=== PATIENT | female | born 1945 | race Caucasian/White ===

== ENCOUNTER 2020-10-29 01:31 | Inpatient (IN) | payer MEDICARE, BC ==
[~2020-10-29] VITALS: Ht 165.1 cm; Wt 73.0 kg
[2020-10-29] MEDS ORDERED: OLME20TA13 PO (01:50)
[2020-10-29] MEDS ORDERED: ASPI81TA31 PO (01:50)
[2020-10-29] MEDS ORDERED: CARV6.252 PO (01:50)
[2020-10-29] MEDS ORDERED: SPIR25TA6 PO (01:50)
[2020-10-29] MEDS ORDERED: vitamin d3 PO (01:50)
[2020-10-29] MEDS ORDERED: PANT40TA49 PO (01:50)
[2020-10-29] MEDS ORDERED: CYAN100T44 PO (01:50)
[2020-10-29] MEDS ORDERED: IV NS 1000 ML 1,000 ML IV ONE ×2 (02:30→03:30)
[2020-10-29 02:33] LABS: CARBON DIOXIDE 26 mmol/L (21-32); CHLORIDE 109 mmol/L (98-107); CREATININE 1.5 mg/dL (0.6-1.3); GLUCOSE 101 mg/dL (74-106); POTASSIUM 4.1 mmol/L (3.5-5.1); UREA NITROGEN, BLOOD 40 mg/dL (7-18)
--- NOTE | 2020-10-29 04:13 | NUR ---
After 2 liters of NS, patient will be medically cleared to be admitted to MHU.
--- NOTE | 2020-10-29 05:13 | NUR ---
IV removed. Catheter intact and site benign. Pressure and 4x4 gauze applied to site. No bleeding noted.
--- NOTE | 2020-10-29 05:26 | NUR ---
Transfered to MHU via wheelchair with no distress noted.
[2020-10-29] MEDS ORDERED: MAG HYDROX/AL HYDROX/SIMETH 30 ML LIQUID UDC PO PRN (05:30)
[2020-10-29] MEDS ORDERED: ZOLPIDEM 5 MG TABLET PO PRN (05:30)
[2020-10-29] MEDS ORDERED: BLOOD SUGAR DIAGNOSTIC 1 EACH STRIP VI ONE (05:30)
[2020-10-29] MEDS ORDERED: MAGNESIUM HYDROXIDE 30 ML LIQUID UDC PO PRN (05:30)
[2020-10-29] MEDS ORDERED: ACETAMINOPHEN 325 MG TABLET PO PRN (05:30)
[2020-10-29 06:25] VITALS: BP 138/74
--- NOTE | 2020-10-29 06:27 | NUR ---
GPS: Admitted to unit earlier a 75 yr.old female under the care of /YRIS Allen. Pt.is on a 72 hour hold for GD. Pt.has been refusing her meds,reportedly decreasing her functioning,becoming agitated and increasingly unable to care for herself,per hold. Pt.is alert to self. Confused and slightly anxious at this time but cooperative. Pt's advisement/pt's rights booklet given. Unit rules explained. Personal belongings list/skin assessment completed. Safety emphasized. YRIS Allen notified to reconcile meds. Safety checks Q15 minutes initiated for safety. Will continue to monitor.
--- NOTE | 2020-10-29 06:58 | NUR ---
Daughter Sabina Hu made aware of admission to MHU, expressed acknowledgement of information.
--- NOTE | 2020-10-29 08:17 | NUR ---
FIREARMS REPORT: Loading [employer] Hand completed and submitted a [employer] firearms report for 5150 grave disability certification. A copy of report has been placed in patient chart.
--- NOTE | 2020-10-29 09:39 | NUR ---
SW Family Contact: This SW contacted patient's daughter Rufina ([phone]) to discuss treatment and discharge plan and was unavailable. This SW left a detailed voicemail.
--- NOTE | 2020-10-29 09:39 | NUR ---
SW Initial Discharge Plan: Patient resides at a Memory Care Unit located at [address] [place] [address]. Phone number for the Memory Unit is not unavailable. This SW checked pt's chart and was not listed. This SW contacted patient's daughter Rufina ([phone]) to discuss treatment and discharge plan and was unavailable. This SW left a detailed voicemail. SW will work with the family and MD to coordinate proper discharge.
--- NOTE | 2020-10-29 09:43 | NUR ---
Treatment Plan: Pt unable to sign treatment plan due to confusion.
--- NOTE | 2020-10-29 10:14 | NUR ---
SW Family Contact: This SW spoke with patient's daughter Rufina ([phone]) who stated that she is the DPOA and will send this SW the document. She stated that patient resides at a Memory Care Unit called [facility] located at [address] [place] [address]. Daughter provided this SW directors number Roma ([phone]). Daughter stated she would want pt back to the memory care unit. She stated she is unsure if they will take pt back and pt has been at the memory care unit for only a week. This SW offered her nursing facility option and daughter appeared to be confused in terms of where she would want pt to go. Daughter expressed she needs time and has her own resources. This SW educated her on pt's status and 5150/5250. Daughter would want SW to contact memory care unit and see if they will take pt back. Daughter appears to be anxious in terms of pt being in a psychiatric unit and is in denial that pt's mental status is declining.
--- NOTE | 2020-10-29 10:19 | NUR ---
Memory Care Unit Contact: Memory Care Unit called [facility] located at [address] [place] [address]. Daughter provided this SW directors number Roma ([phone]). This SW contacted Roma and she was unavailable at this time. This SW left a detailed voicemail.
[2020-10-29] MEDS ORDERED: OLANZAPINE 10 MG VIAL IM ONE (11:15)
--- NOTE | 2020-10-29 11:19 | NUR ---
GPS: Nursing Notes: Striking Out without Provocation: Patient is awake responding to her name, responding to internal stimuli, by talking to unseen others, got out of bed, unsteady gait, when staff started to assist her when she was loosing her balance, patient became paranoid, violent outburst without provocation, striking out and kicking staff without any regard for safety, or others, confused, shouting for her mother, unable to be redirected, Dr. Rubio was paged, continue to monitor for safety, continue with treatment plan.
--- NOTE | 2020-10-29 11:24 | NUR ---
GPS: Nursing Notes: Chemical Restraint: Patient continue to strike out to staff, kicking staff, overly disruptive by shouting, paranoid behavior, episodes of threatening staff, confused, disoriented, setting limits, but unable to redirected, "YOU ARE GOING TO GET IT..", shouting incoherently, responding to internal stimuli by talking unseen others, restless behavior, R=18, Dr. Rubio called and ordered: Zyprexa 10mg IM STAT X1 for severe agitation, continue to monitor for safety, continue with treatment plan.
--- NOTE | 2020-10-29 11:54 | NUR ---
GPS: Nursing Notes: Reassessment of Chemical Restraint: Patient is awake and responding to her name, confused, disoriented, impaired judgment, poor insight, episodes of talking incoherently, medication IM as effective, patient became calm, stopped hitting staff when assisting her, R=18, continue to monitor for safety, continue with treatment plan.
--- NOTE | 2020-10-29 13:22 | NUR ---
Memory Care Unit Contact: [facility] [place] [facility] [place] located at [address] [place] [address]. Daughter provided this directors number Roma ([phone]). Roma stated as long as pt is medication compliant they will take pt back.
[2020-10-29] MEDS: LORAZEPAM 0.5 MG TABLET PO PRN (14:06)
[2020-10-29 15:29] VITALS: BP 143/82
[2020-10-29 18:20] LABS: *BILIRUBIN,URIN NEGATIVE (NEGATIVE); *BLOOD, URINE NEGATIVE (NEGATIVE); *CLARITY,URINE CLEAR (CLEAR); *COLOR,URINE YELLOW (YELLOW); *KETONES,URINE NEGATIVE (NEGATIVE); *UROBILINOGEN,URINE 0.2 E.U./dl (NORMAL); LEUKOCYTE ESTERASE ,URINE NEGATIVE (NEGATIVE); NITRITE, URINE NEGATIVE (NEGATIVE); UGLUCOSE NEGATIVE (NEGATIVE)
[2020-10-29 18:27] LABS: *CREATININE,URINE 49.9 mg/dL (30-125); *URINE TOTAL PROTEIN RANDOM 7.3 mg/dL (<150/24HR)
--- NOTE | 2020-10-29 20:00 | NUR ---
RECEIVED PATIENT IN THE HALLWAY SITTING IN A MIREYA CHAIR. SHE IS NOTED A/O X 1 NOTED CONFUSED HYPERVERBAL WITH DISORGANIZED SPEECH, LABILE AND EASILY IRRITABLE. SHE IS ALSO NOTED HAVING VH/AH SHE IS NOTED TALKING TO HERSELF AND REACHING FOR THINGS THAT ARE NOT THERE. PATIENT IS POOR HISTORIAN. SHE IS HARD TO REDIRECT AND SHE REQUIRES MULTIPLE REDIRECTION AND REASSURANCE. PATIENT WAS OFFERED PO FLUIDS AND SNACKS. V/S STABLE. SAFETY AND FALL PRECAUTION IN PLACE. WILL CONTINUE TO MONITOR.
[2020-10-29 20:05] VITALS: BP 139/87
[2020-10-29] MEDS: risperiDONE 0.25 MG TABLET PO SCH (21:08)
--- NOTE | 2020-10-29 22:30 | NUR ---
PATIENT WAS ABLE TO COMPLY WITH HER MEDICATION REGIMENT; HOWEVER, SHE REQUIRES MULTIPLE REDIRECTION AND REASSURANCE. SHE IS NOTED EASILY IRRITABLE. AMBIEN 5MG WAS GIVEN TO HELP HER SLEEP.
[2020-10-30] MEDS: PANTOPRAZOLE SODIUM 40 MG TABLET.DR PO SCH (07:00)
[2020-10-30] MEDS: LORAZEPAM 0.5 MG TABLET PO PRN (07:24)
[2020-10-30 07:30] VITALS: BP 142/111
[2020-10-30] MEDS: ASPIRIN 81 MG TAB.CHEW PO SCH ×3 (09:00→12:54)
[2020-10-30] MEDS: CYANOCOBALAMIN 100 MCG TABLET PO SCH ×3 (09:00→12:55)
[2020-10-30] MEDS: CARVEDILOL 6.25 MG TABLET PO SCH ×3 (09:00→12:55)
[2020-10-30] MEDS: risperiDONE 0.25 MG TABLET PO SCH ×3 (09:00→21:33)
[2020-10-30] MEDS ORDERED: Medication Not On Formulary EA (Olmesartan Medoxomil (Benicar) 20 MG) PO SCH (09:00)
[2020-10-30] MEDS: SPIRONOLACTONE 25 MG TABLET PO SCH ×3 (09:00→12:54)
[2020-10-30] MEDS: LOSARTAN POTASSIUM 50 MG TABLET PO SCH ×3 (09:00→12:54)
[2020-10-30] MEDS ORDERED: VITAMIN D3 5000 UNIT PO SCH (09:00)
--- NOTE | 2020-10-30 09:33 | NUR ---
Patient refused all morning medications. She spits out, aggressive to staff, and combative. She throws her food and refusing to be touched. Will continue to monitor and maintain safety precaution.
[2020-10-30 10:57] LABS: HEMATOCRIT 40.7 % (31.2-41.9); MEAN CORPUSCULAR HEMOGLOBIN 29.8 uug (24.7-32.8); MEAN CORPUSCULAR VOLUME 90.7 fL (75.5-95.3); PLATELET COUNT (AUTO) 173 K/uL (179-408)
[2020-10-30 11:18] LABS: ALANINE AMINOTRANSFERASE 16 U/L (14-59); ALKALINE PHOSPHATASE 60 U/L (50-136); ASPARTATE AMINOTRANSFERASE 17 U/L (15-37); BILIRUBIN,TOTAL 0.7 mg/dL (0.2-1.0); CARBON DIOXIDE 25 mmol/L (21-32); CHLORIDE 110 mmol/L (98-107); CREATINE KINASE, TOTAL 207 U/L (26-192); CREATININE 1.4 mg/dL (0.6-1.3); GLUCOSE 105 mg/dL (74-106); PHOSPHOROUS 2.1 mg/dL (2.5-4.9); TOTAL PROTEIN, SERUM 7.1 g/dL (6.4-8.2); UREA NITROGEN, BLOOD 29 mg/dL (7-18)
--- NOTE | 2020-10-30 12:00 | NUR ---
Daughter came to see the patient. The patient is alert, able to eat lunch and take her routine medications while the daughter is around. Patient also took a shower given by the [employer]. While the daughter is around, the patient has not shown any signs of combativeness, she was calm and followed commands, had snack and comfortably lying on the gerichair. Daughter was thankful for the services and care given to her mother. Will continue to monitor patient for any significant changes. Will continue to monitor for safety.
--- NOTE | 2020-10-30 12:19 | NUR ---
SW Family Contact: This SW and Dr. Rubio me with patient's daughter Rufina ([phone]) to discuss treatment and discharge plan. Rufina wants to take the patient home tomorrow 10/31/20 as her [address] Rubio is agreeable with this as Rufina's plan is to take the patient home with the necessary resources and care. Rufina stated she will be taking the patient home and will let the memory care unit know the patient will not be returning there. Rufina stated she will make the primary doctor and psychiatry appointments for the patient and let this SW know dates and times.
[2020-10-30 16:17] VITALS: BP 156/86
[2020-10-30] MEDS ORDERED: NEUTRA PHOS PACKET PO ONE (16:30)
--- NOTE | 2020-10-30 18:26 | NUR ---
Staff attempted to take patient to the restroom but patient immediately became combative. Patient attempted to punch, kick, and hit staff. Patient taken back to her assigned room but was combative with staff and other patients. Patient escalating, not redirectable, not able to participate due to confusion, and unable to verbally contract for her safety or the safety of others. Dr. Ramiro avelar. Patient's daughter called and notified of patient's behavior and daughter attempted to speak to patient to calm her down. Patient screams "Help! Call the police! Help!" continuously.
[2020-10-30 21:26] VITALS: BP 158/99
--- NOTE | 2020-10-31 07:54 | NUR ---
SW Discharge Note: Patient will be discharged home AMA with her daughter MAGUI Almaraz ([phone]) located at [address] [place], [place] [id number]. Rufina will be picking up the patient at 11AM. Patient appears to be alert and oriented x2. Patient denies suicidal or homicidal ideation. Patient denies visual or auditory hallucinations. Patient presents with euthymic mood and congruent affect. Patient will be following up with her psychiatrist Dr. Siena Morales [id number] [facility] [address], [place] [address] ([phone]) and primary physician Dr. Marko Kasper [address] [address], [place] [address] ([phone]). Patients daughter MAGUI Almaraz ([phone]) stated she will be making all the aftercare appointments.
[2020-10-31] MEDS: PANTOPRAZOLE SODIUM 40 MG TABLET.DR PO SCH ×2 (07:57→10:51)
--- NOTE | 2020-10-31 08:12 | NUR ---
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 and to provide transportation , prescriptions will be provided. remains up in her flori-chair asleep at this time, in no signs of any distress, refusing vital signs, will attempt in a later time.
[2020-10-31] MEDS: CARVEDILOL 6.25 MG TABLET PO SCH (09:00)
--- NOTE | 2020-10-31 09:55 | NUR ---
Gps/Restaurant Host- Offered routine morning meds, this am, refused, offered to be assisted with her breakfast, refused, when asked patient how we can help her, patient stated" just disappear"patient making a fist,.
--- NOTE | 2020-10-31 10:37 | NUR ---
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 . Informed daughter pt. refusing to take am routine meds, daughter volunteered to give meds.patient was able to take routine am meds, showered patient with med. wrapper as she administer. Toileted, voided, wears diaper, wears own clothes. Discharged accompanied by her daughter, all belongings given back, no complaints, in no signs of any distress.
[2020-10-31] MEDS: CYANOCOBALAMIN 100 MCG TABLET PO SCH (10:47)
[2020-10-31] MEDS: ASPIRIN 81 MG TAB.CHEW PO SCH (10:47)
[2020-10-31] MEDS: SPIRONOLACTONE 25 MG TABLET PO SCH (10:49)
[2020-10-31 10:50] VITALS: BP 132/70
[2020-10-31] MEDS: LOSARTAN POTASSIUM 50 MG TABLET PO SCH (10:50)
[2020-10-31] MEDS: risperiDONE 0.25 MG TABLET PO SCH (10:50)
[2020-10-31 16:43] LABS: ALBUMIN 3.9
[2020-10-31 16:44] LABS: ALPHA-1-GLOBULIN 0.2; ALPHA-2-GLOBULIN 0.6; BETA GLOBULIN 0.9; GAMMA GLOBULIN 0.9
[2020-10-31 16:45] LABS: A/G RATIO 1.6; GLOBULIN, TOTAL 2.5
== END 2020-10-31 10:40 | disposition left against medical advice (07) | DRG 885 ==
LOC: ER 01:40 → GPS 05:09
PROVIDERS: ADMIT Psychiatry & Neurology Psychiatry; ATTEND Nurse Practitioner Acute Care
DX: F29 Unspecified psychosis not due to a substance or known physiological condition (principal); N17.9 Acute kidney failure, unspecified; N18.9 Chronic kidney disease, unspecified; F03.91 Unspecified dementia, unspecified severity, with behavioral disturbance; I12.9 Hypertensive chronic kidney disease with stage 1 through stage 4 chronic kidney disease, or unspecified chronic kidney disease; E83.52 Hypercalcemia; E86.0 Dehydration; K21.9 Gastro-esophageal reflux disease without esophagitis; E21.3 Hyperparathyroidism, unspecified; Z88.0 Allergy status to penicillin; Z88.2 Allergy status to sulfonamides; Z88.8 Allergy status to other drugs, medicaments and biological substances
CPT/HCPCS: 36415; 83735; 83970; 84100; 84155; 84156; 84165; 84300; 85025; 97161; A4663; J2358; J7030